=== PATIENT | male | born 1980 | race African-American/Black ===

== ENCOUNTER 2017-05-31 14:12 | Emergency (ER) | payer BC ==
[2017-05-31 15:34] LABS: BASOPHILS 0.1 % (0-2); EOSINOPHILS 1.3 % (0-7); HEMATOCRIT 40.3 % (42.0-54.0); HEMOGLOBIN 13.7 g/dL (13.5-17.5); IMMATURE GRANULOCYTES 0.1 % (0-5); LYMPHOCYTES 40.3 % (15-50); MCH 28.2 pg (26.0-34.0); MCV 82.9 fL (80.0-100.0); MEAN PLATELET VOLUME 10.1 fL (7.4-10.4); MONOCYTES 9.2 % (2-11); PLATELET COUNT 228 10x3/uL (130-400); RBC 4.86 10x6/uL (4.20-6.10); RDW 14.6 % (11.5-14.5)
== END 2017-05-31 17:24 | disposition home or self-care (01) ==
LOC: D.ER 14:12
PROVIDERS: Family Medicine
DX: S29.012A Strain of muscle and tendon of back wall of thorax, initial encounter (principal); V43.52XA Car driver injured in collision with other type car in traffic accident, initial encounter; Y93.89 Activity, other specified; Y92.410 Unspecified street and highway as the place of occurrence of the external cause; S39.012A Strain of muscle, fascia and tendon of lower back, initial encounter; S06.0X9A Concussion with loss of consciousness of unspecified duration, initial encounter; R51 Headache; F17.200 Nicotine dependence, unspecified, uncomplicated

== ENCOUNTER 2017-06-06 09:45 | Emergency (ER) | payer BC | END 2017-06-06 10:44 | disposition home or self-care (01) | LOC: D.ER 09:45 | DX: M54.5 Low back pain (principal); S39.012A Strain of muscle, fascia and tendon of lower back, initial encounter; X58.XXXA Exposure to other specified factors, initial encounter; Y93.89 Activity, other specified; Y92.89 Other specified places as the place of occurrence of the external cause; M62.838 Other muscle spasm; F17.200 Nicotine dependence, unspecified, uncomplicated ==

== ENCOUNTER 2017-07-29 15:02 | Emergency (ER) | payer MEDICARE | END 2017-07-29 15:34 | disposition home or self-care (01) | LOC: D.ER 15:02 | DX: H10.31 Unspecified acute conjunctivitis, right eye (principal) ==

== ENCOUNTER → 2019-04-11 08:37 | Outpatient (CLI) | payer OTHER | END | disposition home or self-care (01) | LOC: D.MRI 08:37 | PROVIDERS: ATTEND Orthopaedic Surgery | DX: S83.272A Complex tear of lateral meniscus, current injury, left knee, initial encounter (principal) ==

== ENCOUNTER 2019-05-08 09:10 | Day surgery (SDC) | payer OTHER ==
[~2019-05-08] VITALS: Ht 172.7 cm; Wt 74.8 kg
[~2019-05-08 09:10] MED LIST: HYDROCODON-ACE1 EAC2 PO
[2019-05-08 10:36] VITALS: BP 140/91; Ht 172.7 cm; Wt 74.8 kg
[2019-05-08] MEDS ORDERED: HYDROCODON-ACE1 EA10 PO (14:43)
--- NOTE | 2019-05-11 11:53 | OP ---
PATIENT NAME: MAYANK OTERO JR MEDICAL RECORD: [id number] :80 LOCATION:[facility] ADMISSION DATE: SURGEON: NATACHA GOODMAN MD DATE OF OPERATION: 05/08/2019 PREOPERATIVE DIAGNOSIS: Left lateral meniscus tear. POSTOPERATIVE DIAGNOSIS: Left lateral meniscus tear. PROCEDURE: Arthroscopic partial lateral meniscectomy. SURGEON: Natacha Goodman MD ANESTHESIA: General. INTRAOPERATIVE COMPLICATIONS: None. 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 However, it was somewhat roughened. A near subtotal lateral meniscectomy was required. OPERATIVE SUMMARY IN DETAIL: After obtaining the appropriate preoperative orthopedic surgery consent as well as anesthetic consultation, evaluation and clearance, the patient was brought to the operating room and placed on the operating table in supine position. After general laryngeal mask airway was administered, tourniquet was placed about the proximal aspect of the left lower extremity. Left lower extremity was then prepped and draped in routine sterile fashion. At this point, the appropriate preoperative timeout was taken by the entire OR crew with the appropriate patient identifiers agreed upon by all. Having completed this, the leg was elevated and exsanguinated, tourniquet was inflated to 350 mmHg. Routine inferolateral portal was established followed by superomedial portal and inferomedial portal. Diagnostic arthroscopy showed the medial compartment to have some areas of grade II chondromalacia from previous injury that was known; however, the menisci was intact and stable and did show signs of prior partial meniscectomy. The knee was placed in the [id number] position and photographs were taken arthroscopically for permanent part of the record. At this point, serial and sequential takedown of the large tear of the meniscus was done with a combination of both the arthroscopic resector as well as meniscotomes. Upon complete clearance of the torn meniscus, further photographs were taken and placed in the chart. Having completed this, the knee was insufflated with 30 cc of 0.25% Marcaine with epinephrine and 80 mg of Depo-Medrol. Arthroscopy portals were closed in routine interrupted fashion using 4-0 Prolene. Sterile dressings were applied. The patient was awakened, taken to recovery room in stable condition. All final needle and sponge counts were correct. TRANSINT:[id number] Voice Confirmation ID: [id number] DOCUMENT ID: [id number] OPERATIVE REPORT [id number] MAYANK OTERO JR, MD, NATACHA DALY at 1153 CC: [id number] DICTATION DATE: 05/11/19 1111 PARTNER: 05/11/19 1122 [facility] 05/08/19 [place] [id number]
== END 2019-05-08 16:35 | disposition home or self-care (01) ==
LOC: D.OPS 09:10 → D.PAN 12:45 → D.OPS 14:15
PROVIDERS: ATTEND Orthopaedic Surgery
DX: S83.282A Other tear of lateral meniscus, current injury, left knee, initial encounter (principal); M25.562 Pain in left knee